=== PATIENT | male | born 1990 | race Caucasian/White ===

== ENCOUNTER 2019-12-28 17:31 | Emergency (ER) | payer MEDICARE, MEDICAID, SELFPAY ==
[2019-12-28 17:40] VITALS: BP 134/78; PULSE 89; RESP 18; TEMP 36.8; O2SAT 100
--- NOTE | 2019-12-28 18:23 | PC.NURSE ---
1821- Pt update on wait time d/t provider doing a procedure. No further complaints at this time.
--- NOTE | 2019-12-28 18:30 | ED.GENADULT ---
HPI - General Adult General Chief complaint: Extremity Injury, Upper Stated complaint: Hand Pain Time Seen by Provider: 12/28/19 18:30 Source: patient and RN notes reviewed Mode of arrival: ambulatory Limitations: no limitations History of Present Illness HPI narrative: 29-year-old male presents concern for redness, warmth to the first digit of his left hand. Reports a week ago he injured the hand and since then it is become red, swollen, pain. Denies musculoskeletal pain. Denies fever, malaise MD complaint: Hand pain Location: left and upper extremity Related Data Home Medications Medication Instructions Recorded Confirmed dextroamphetamine-amphetamine 20 mg PO BID 12/28/19 12/28/19 [Adderall XR] famotidine [Pepcid] 20 mg PO DAILY 12/28/19 12/28/19 lamotrigine [Lamictal] 100 mg PO DAILY 12/28/19 12/28/19 Allergies Allergy/AdvReac Type Severity Reaction Status Date / Time CEFADROXIL HYDRATE AdvReac Unknown Nausea Uncoded 12/28/19 17:59 Review of Systems Review of Systems: Narrative: CONSTITUTIONAL: Denies malaise, chills, sweats, or fever. CARDIOVASCULAR: Denies chest pain, palpitations, or edema. RESPIRATORY: Denies cough or dyspnea. SKIN: Denies open skin MUSCULOSKELETAL: Reports left thumb pain, swelling, redness NEUROLOGIC: Denies numbness, weakness All systems reviewed & are unremarkable except as noted in HPI and below PMFSH Social History Social History (Updated 04/11/19 @ 10:59 by SALVATORE Rodriguez) Smoking packs per day: 0.5 Smoking cigarettes per day: 10.0 Smoking status: Current every day smoker Gender identity (if verbalized by the patient): Male Comments At time of signature, agree with nursing past medical, surgical, social and family history. There is no relevant family history pertinent to the presenting complaint Exam Narrative: Exam Narrative: GENERAL: Well-appearing, well-nourished, and in no acute distress. HEAD: Normocephalic EYES: PERRLA, conjunctivae clear NECK: Supple. CHEST: Speaks in full sentences. No respiratory distress. HEART: Regular rate and rhythm. Normal and equal peripheral pulses. EXTREMITIES: First digit of left hand has have normal strength and sensation. 5/5 strength with digit flexion, extension. Range of motion normal. No clubbing, cyanosis, or edema noted. No point tenderness. Skin intact. Normal digital cascade with flexion of fingers, median, ulnar and radial nerve intact. Normal sensation of each side of finger. Can perform 'okay' sign, 'cross over finger test of index and middle fingers' and 'thumbs up' sign. No scissoring. Normal thumb opposition. Good capillary refill and radial pulse. Distal capillary refill less than 3 seconds. SKIN: Warn, dry, intact, pink. No rash. First digit left hand is erythematous, edematous, slightly indurated, mild general tenderness NEURO: Alert and oriented x3. PSYCH: Normal mood and affect Course Course Emergency Course: Patient is aware of diagnosis, understands and agrees to treatment plan. Anticipatory guidance given. Patient agrees to follow-up as directed and is aware of reasons to seek care at the emergency department. Portions of this record may have been created with voice recognition software Vital Signs Vital signs: Vital Signs Temperature 98.2 F 12/28/19 17:40 Pulse Rate 89 12/28/19 17:40 Respiratory Rate 18 12/28/19 17:40 Blood Pressure 134/78 12/28/19 17:40 Pulse Oximetry 100 12/28/19 17:40 Temperature 98.2 F 12/28/19 17:40 Pulse Rate 89 12/28/19 17:40 Respiratory Rate 18 12/28/19 17:40 Blood Pressure 134/78 12/28/19 17:40 Pulse Oximetry 100 12/28/19 17:40 Reviewed. Medical Decision Making MDM Narrative Medical decision making narrative: Exam findings show no acute concerns or changes; patient is non-toxic appearing and is in no distress. Patient is appropriate for outpatient treatment and follow-up. Differential Diagnosis Differential Diagnosis: Cellulitis
== END 2019-12-28 18:37 | disposition home or self-care (01) ==
PROVIDERS: Emergency Provider Nurse Practitioner
DX: L03.012 Cellulitis of left finger (principal); F17.200 Nicotine dependence, unspecified, uncomplicated; K21.9 Gastro-esophageal reflux disease without esophagitis; F90.9 Attention-deficit hyperactivity disorder, unspecified type
CPT/HCPCS: 99213; G0463

== ENCOUNTER 2021-11-12 08:51 | Emergency (ER) | payer MEDICARE, MEDICAID, SELFPAY ==
[2021-11-12 09:04] VITALS: BP 131/66; PULSE 93; RESP 16; TEMP 37.4; O2SAT 99
--- NOTE | 2021-11-12 09:17 | ED.URI ---
HPI - URI/Sore Throat General Chief Complaint: Upper Respiratory Infection Stated Complaint: flu like sx Time Seen by Provider: 11/12/21 09:18 History of Present Illness HPI Narrative: Mir Enrique is a 31 yo male with a PMH of ADD, bipolar, GERD, just got ill this morning, vomited x 2,has stomach pain, diarrhea all week. Related Data Home Medications Medication Instructions Recorded Confirmed dextroamphetamine-amphetamine ER 20 mg PO BID 12/28/19 12/28/19 20 mg 24hr capsule,extend release (Adderall XR) famotidine 20 mg tablet (Pepcid) 20 mg PO DAILY 12/28/19 12/28/19 lamotrigine 100 mg tablet 100 mg PO DAILY 12/28/19 12/28/19 (Lamictal) Allergies Allergy/AdvReac Type Severity Reaction Status Date / Time cefadroxil AdvReac Mild Nausea Verified 11/12/21 09:32 Review of Systems Review of Systems: CONSTITUTIONAL: Denies fever, chills, sweats. EYES: Denies visual changes, redness, discharge. ENT: Denies rhinorrhea, congestion, sore throat, otalgia. CARDIOVASCULAR: Denies chest pain, palpitations, edema. RESPIRATORY: Denies dyspnea, wheezing, cough GASTROINTESTINAL: Denies abdominal pain, nausea, vomiting this morning, has diarrhea. GENITOURINARY: Denies dysuria, hematuria, abnormal discharge SKIN: Denies rash or itching. NEUROLOGIC: Denies numbness, or focal weakness. PSYCHIATRIC: Denies anxiety or depression. [facility] Past Medical History Medical History (Updated 11/12/21 @ 09:36 by Natasha Holder CNP) ADHD Bipolar disorder GERD (gastroesophageal reflux disease) IBS (irritable bowel syndrome) Strabismus as a child Surgical History Surgical History Hx of tonsillectomy Family History Family History Grandparent Cerebrovascular accident Hypertension Father Hypertension Mother Family history of thyroid problem Social History Social History Smoking packs per day: 0.5 Smoking cigarettes per day: 10.0 Smoking status: Current every day smoker Gender identity (if verbalized by the patient): Male Comments At time of signature, I agree with nursing past medical, surgical, social and family history. There is no relevant family history pertinent to the presenting complaint. Exam Narrative: GENERAL: This is a well-nourished, well-developed patient, in mild distress. HEAD: normocephalic, atraumatic. EYES: Sclera clear/white. Vision is grossly intact. EARS: External ears normal, Hearing grossly intact. NOSE: External nose normal without nasal discharge, nares without redness, no rhinorrhea. THROAT: Mucous membranes moist, NECK: Neck supple, non-tender CARDIOVASCULAR: Regular rate and rhythm without murmurs, gallops, or rubs. RESPIRATORY: Clear to auscultation. Breath sounds equal bilaterally. No wheezes, rales, or rhonchi. GASTROINTESTINAL: Abdomen soft, non-tender, states that he has a 5 out of 10 pain when he lays down even though no pain on palpation, bowel sounds normal SKIN: warm, intact with no suspicious lesions or rash, good texture and turgor. NEURO: awake, alert, and oriented to person, place and time. There were no obvious focal neurologic abnormalities. Steady gait EXTREMITIES: Normal range of motion. BACK: Nontender without deformity Course Course Emergency Course: Patient comes with abdominal pain and vomiting this morning COVID test done-negative Discussed use of Zofran and famotidine for indigestion Patient told to go to ER if pain does not improve or if vomiting continues Level of Care: Express Care Visit Vital Signs Vital signs: Vital Signs Temperature 99.3 F 11/12/21 09:04 Pulse Rate 93 11/12/21 09:04 Respiratory Rate 16 11/12/21 09:04 Blood Pressure 131/66 11/12/21 09:04 Pulse Oximetry 99 11/12/21 09:04 Oxygen Delivery Room Air 11/12/21 09:04 Temperature 99.3
== END 2021-11-12 10:04 | disposition home or self-care (01) ==
PROVIDERS: Emergency Provider Nurse Practitioner
DX: R11.10 Vomiting, unspecified (principal); R10.9 Unspecified abdominal pain; Z20.822 Contact with and (suspected) exposure to COVID-19; F17.210 Nicotine dependence, cigarettes, uncomplicated; K21.9 Gastro-esophageal reflux disease without esophagitis; F90.9 Attention-deficit hyperactivity disorder, unspecified type; F31.9 Bipolar disorder, unspecified
CPT/HCPCS: 87426; 99213; C9803; G0463